=== PATIENT | female | born 1930 | race Caucasian/White ===

== ENCOUNTER 2017-02-13 12:53 | Inpatient (IN) | payer MEDICARE, OTHER ==
[~2017-02-13] VITALS: Ht 160 cm; Wt 75.3 kg
[2017-02-13 13:36] LABS: HEMOGLOBIN 14.8 gm/dl (12.3-15.3); RED BLOOD COUNT 4.81 M/UL (4.00-5.10)
[2017-02-13 13:53] LABS: BUN/CREATININE RATIO 24 (0-10)
[2017-02-13] MEDS ORDERED: ASPIRIN81 MG PO (19:31)
[2017-02-13] MEDS ORDERED: VITAMIN C 500500 MG PO (19:32)
[2017-02-13] MEDS ORDERED: B-121000 MCG PO (19:32)
[2017-02-13] MEDS ORDERED: FORTAMET500 MG PO (19:34)
[2017-02-13] MEDS ORDERED: CALCIUM 600 +1 EA12 PO (19:34)
[2017-02-13] MEDS ORDERED: FUROSEMIDE20 MG PO (19:35)
[2017-02-13] MEDS ORDERED: ACID CONTROL150 MG PO (19:35)
[2017-02-13] MEDS ORDERED: PLAVIX 75 MG TA75 MG PO (19:36)
[2017-02-13] MEDS ORDERED: NORVASC 5 MG TAB5 MG PO (19:36)
[2017-02-13] MEDS ORDERED: KLOR-CON M2020 MEQ PO (19:36)
[2017-02-13] MEDS ORDERED: LIPITOR TAB 1010 MG PO (19:37)
[2017-02-13] MEDS ORDERED: PRINIVIL20 MG PO (19:39)
[2017-02-13] MEDS ORDERED: LEVAQUIN TAB 5500 MG PO (19:39)
[2017-02-14 04:51] LABS: HEMOGLOBIN 13.8 gm/dl (12.3-15.3); RED BLOOD COUNT 4.52 M/UL (4.00-5.10); WHITE BLOOD COUNT 8.4 K/UL (4.5-11.0)
[2017-02-15 04:08] LABS: HEMOGLOBIN 13.2 gm/dl (12.3-15.3); RED BLOOD COUNT 4.3 M/UL (4.00-5.10); WHITE BLOOD COUNT 8.5 K/UL (4.5-11.0)
[2017-02-15 04:37] LABS: BUN/CREATININE RATIO 25 (0-10)
[2017-02-16 04:26] LABS: BUN/CREATININE RATIO 30 (0-10)
[2017-02-16] MEDS ORDERED: ELIQUIS2.5 MG PO (10:59)
[2017-02-16] MEDS ORDERED: GLUCERNA237 ML PO (11:02)
[2017-02-16] MEDS ORDERED: CARDIZEM CD240 MG PO (11:05)
[2017-02-16] MEDS ORDERED: LOPRESSOR 25 MG25 MG PO (11:10)
[2017-02-16] MEDS ORDERED: IPRAT-ALBUT 0.5-3 ML INH (11:13)
[2017-02-16] MEDS ORDERED: LISINOPRIL10 MG PO (11:15)
== END 2017-02-16 12:01 | disposition home or self-care (01) | DRG 309 ==
LOC: ER1 12:53 → ZEROF 14:54 → PROG CARE 18:22
PROVIDERS: Emergency Medicine; ADMIT Emergency Medicine
DX: I48.91 Unspecified atrial fibrillation (principal); E44.0 Moderate protein-calorie malnutrition; Z68.29 Body mass index [BMI] 29.0-29.9, adult; I10 Essential (primary) hypertension; J20.9 Acute bronchitis, unspecified; J45.909 Unspecified asthma, uncomplicated; I25.10 Atherosclerotic heart disease of native coronary artery without angina pectoris; E11.9 Type 2 diabetes mellitus without complications; E78.5 Hyperlipidemia, unspecified; I95.2 Hypotension due to drugs; T46.1X5A Adverse effect of calcium-channel blockers, initial encounter; T46.4X5A Adverse effect of angiotensin-converting-enzyme inhibitors, initial encounter; E83.42 Hypomagnesemia; K59.00 Constipation, unspecified; F03.90 Unspecified dementia, unspecified severity, without behavioral disturbance, psychotic disturbance, mood disturbance, and anxiety; Z86.73 Personal history of transient ischemic attack (TIA), and cerebral infarction without residual deficits; Z66 Do not resuscitate; Z72.3 Lack of physical exercise; Z79.84 Long term (current) use of oral hypoglycemic drugs; Z79.02 Long term (current) use of antithrombotics/antiplatelets; Z79.82 Long term (current) use of aspirin; Z79.899 Other long term (current) drug therapy; Z88.3 Allergy status to other anti-infective agents; Z88.0 Allergy status to penicillin; Z90.710 Acquired absence of both cervix and uterus; Z98.890 Other specified postprocedural states; Z80.7 Family history of other malignant neoplasms of lymphoid, hematopoietic and related tissues; Z82.49 Family history of ischemic heart disease and other diseases of the circulatory system; Z82.3 Family history of stroke
CPT/HCPCS: ECHO; 36415; 36600; 70450; 71010; 80048; 80053; 80061; 81001; 82550; 82553; 82803; 82962; 83036; 83605; 83735; 83880; 84484; 85025; 85027; 87040; 87086; 87205; 93005; 93306; 94640; 94664; 96374; 97110; 97116; 99285; J1650; J1720; J2405; J2543; J7030; J7050; Q0163